=== PATIENT | male | born 1965 | race Caucasian/White ===

== ENCOUNTER 2016-07-03 15:37 | Observation (INO) | payer MEDICAID ==
--- NOTE | 2016-07-03 16:03 | ER Document Report ---
[id number] Ambulatory Information source: Patient TRAVEL OUTSIDE OF THE [place] IN LAST 30 DAYS: No - HPI Patient complains to provider of: Cough, Short of breath Onset: Yesterday Context: Hx CHF At home treatment: Oxygen Associated symptoms: Other - see above <SERGIO SKY - Last Filed: 07/03/16 23:18> <KEYANA TABOR - Last Filed: 07/16/16 13:10> - General Chief Complaint: Cough Stated Complaint: COUGH Notes: 51-year-old male with history of congestive heart failure and pneumonia presents to the ED via EMS complaining of a cough and cold that started yesterday. Patient states that the last time he was admitted for respiratory- related issues was in January 2016. Patient is on 3 L of oxygen at home and states that he mainly uses it at night however does use it throughout the day when needed. Patient is additionally complaining of shortness of breath and back pain. Patient states that he was placed on a ventilator in the past which led to his throat collapsing and is the reason why he has a trach in place. Patient also has a history of sleep apnea and blood clots and is currently on Xarelto. EMS reports that the patient had a fever of 103F and gave the patient Tylenol prior to arrival. Patient was 83% on room air while walking to the ambulance. Patient was placed on a nonrebreather and his O2 saturation went to 99%. (SERGIO SKY) - Related Data Allergies/Adverse Reactions: heparin Allergy (Severe, Verified 07/03/16 22:40) Home Medications: Current Home Medications Bumetanide [Bumex 1 mg Tablet] 1 mg PO DAILY 07/04/16 [History] Metformin HCl [Glucophage] 1,000 mg PO BID 07/04/16 [History] Metoprolol Tartrate [Lopressor 25 mg Tablet] 25 mg PO Q12 07/04/16 [History] Rivaroxaban [Xarelto] 20 mg PO DAILY 07/04/16 [History] Past Medical History - General Information source: Patient - Social History Smoking Status: Unknown if Ever Smoked Family History: Reviewed & Not Pertinent - Past Medical History Cardiac Medical History: Reports: Hx Congestive Heart Failure, Hx Hypertension Pulmonary Medical History: Reports: Hx Asthma, Hx Intubation, Hx Respiratory Failure, Hx Sleep Apnea Endocrine Medical History: Reports: Hx Diabetes Mellitus Type 2 - Immunizations Hx Diphtheria, Pertussis, Tetanus Vaccination: Yes <SERGIO SKY - Last Filed: 07/03/16 23:18> Review of Systems - Review of Systems Constitutional: See HPI, Fever - 103F EENT: No symptoms reported Cardiovascular: No symptoms reported Respiratory: See HPI, Cough, Short of breath Gastrointestinal: No symptoms reported Genitourinary: No symptoms reported Male Genitourinary: No symptoms reported Musculoskeletal: See HPI, Back pain Skin: No symptoms reported Hematologic/Lymphatic: No symptoms reported Neurological/Psychological: No symptoms reported -: Yes All other systems reviewed and negative <SERGIO SKY - Last Filed: 07/03/16 23:18> Physical Exam - Vital signs Interpretation: Normal - General General appearance: Alert In distress: None - HEENT Head: Normocephalic, Atraumatic Eyes: Normal Extraocular movements intact: Yes Pupils: PERRL Neck: Normal - Tracheotomy is midline. - Respiratory Respiratory status: No respiratory distress Breath sounds: Rhonchi - bilaterally. No: Normal - Cardiovascular Rhythm: Regular Heart sounds: Normal auscultation - Abdominal Inspection: Normal Distension: No distension Bowel sounds: Normal Tenderness: Nontender - Back Back: Normal - Extremities General upper extremity: Normal inspection, Normal ROM. No: Edema General lower extremity: Normal inspection, Normal ROM. No: Edema - Neurological Neuro grossly intact: Yes Cognition: Normal Orientation: AAOx4 [place] Coma Scale Eye Opening: Spontaneous [place] Coma Scale Verbal: Oriented [place] Coma Scale Motor: Obeys Commands [place] Coma Scale Total: 15 Speech: Normal - Psychological Associated symptoms: Normal affect, Normal mood - Skin Skin Temperature: Warm Skin Moisture: Dry Skin Color: Normal <MARCIO SKYUR - Last Filed: 07/03/16 23:18> <KEYANA TABOR - Last Filed: 07/16/16 13:10> - Vital signs Vitals: Temp Pulse Resp BP Pulse Ox 101.3 F H 102 H 18 131/93 H 90 L 07/03/16 15:45 07/03/16 15:45 07/03/16 15:45 07/03/16 15:45 07/03/16 15:45 Temp Pulse Resp BP Pulse Ox 101.3 F H 102 H 18 131/93 H 90 L 07/03/16 15:45 07/03/16 15:45 07/03/16 15:45 07/03/16 15:45 07/03/16 15:45 (SERGIO SKY) (KEYANA TABOR) Course - Laboratory Result Diagrams: 07/03/16 16:14 07/03/16 16:14 - Consults Dr. Osuna Time consulted: 19:30 <SERGIO SKY - Last Filed: 07/03/16 23:18> - Laboratory Result Diagrams: 07/04/16 06:35 07/03/16 16:14 <KEYANA TABOR - Last Filed: 07/16/16 13:10> - Re-evaluation Re-evalutation: 07/03/16 21:31 07/03/16 22:55 07/03/16 22:56 I personally performed the services described in the documentation, reviewed and edited the documentation which was dictated to my scribe in my presence, and it accurately records my words and actions. Patient presents emergency Department with a chief complaint of difficulty breathing. Patient has a history of morbid obesity CHF sleep apnea and tracheostomy tube that was placed last year. EMS states initial O2 sat of 83% walking to the EMS stretcher from home. On ED arrival patient is febrile 103 slightly tachycardic and normotensive sepsis protocol is ordered on the patient including broad-spectrum antibiotics lactic acid is elevated. Sinus tachycardia on EKG. Cardiac enzymes negative chest x-ray negative for acute pneumonia no urinary tract infection. Patient given IV fluids positive for influenza. Patient will be placed for observation Tamiflu was given breathing treatments and oxygen. 07/04/16 00:00 Patient with improved respiratory status on oxygen no acute respiratory distress negative bilateral pneumonia patient is positive for the flu given his significant respiratory history was placed on Tamiflu and when I spoke with the hospitalist physician he wants him admitted to the ICU. (KEYANA TABOR) - Vital Signs Vital signs: Temp Pulse Resp BP Pulse Ox 98.2 F 62 17 131/93 H 98 07/05/16 12:30 07/05/16 14:18 07/05/16 14:18 07/05/16 12:30 07/05/16 12:30 (KEYANA TABOR) - Laboratory Laboratory results interpreted by me: 07/03/16 07/03/16 07/03/16 16:14 16:14 16:14 RDW 14.1 H Lymphocytes % 10.8 L Monocytes % 16.6 H Carbon Dioxide 31 H Glucose 176 H Lactic Acid 2.2 H 07/03/16 20:55 RDW Lymphocytes % Monocytes % Carbon Dioxide Glucose Lactic Acid 2.5 H (KEYANA TABOR) - EKG Interpretation by Me Additional EKG results interpreted by me: 07/03/16 22:57 EKG interpreted by myself as sinus tachycardia at 102 bpm with right bundle branch block no acute ST segment elevation or depression (KEYANA TABOR) - Consults Dr. Osuna Reason for consultation: 07/03/16 19:30 Dr. Osuna was paged with no response. 07/03/16 20:00 Dr. Osuna was paged with no response. 07/03/16 20:30 Dr. Osuna was paged with no response. 07/03/16 21:00 Dr. Osuna was paged with no response. 07/03/16 21:30 Dr. Osuna was paged with no response. (SERGIO SKY) Critical Care Note - Critical Care Note Total time excluding time spent on procedures (mins): 65 <KEYANA TABOR - Last Filed: 07/16/16 13:10> Discharge <SERGIO SKY - Last Filed: 07/03/16 23:18> - Discharge Admitting Provider: Hospitalist Unit Admitted: ICU <KEYANA TABOR - Last Filed: 07/16/16 13:10> - Discharge Clinical Impression: acute influenza Disposition: ADMITTED INPATIENT Scribe Documentation - Scribe Written by Scribe:: Sage Baum, 07/03/2016 1803 acting as scribe for :: Dean <SERGIO SKY - Last Filed: 07/03/16 23:18>
[2016-07-03] MEDS ORDERED: VANCOMYCIN HCL INJ 1000 MG VIAL IV ONE (16:09)
[2016-07-03] MEDS ORDERED: PIPERACILLIN/TAZOBACTAM 3.375 GM VIAL IV ONE (16:09)
[2016-07-03] MEDS ORDERED: NORMAL SALINE 1000 ML 1,000 ML IV ONE (16:10)
[2016-07-03 16:37] LABS: ABSOLUTE LYMPHOCYTES (AUTO) 0.7 10^3/uL (0.5-4.7); ABSOLUTE MONOCYTES (AUTO) 1.2 10^3/uL (0.1-1.4); BASOPHILS % (AUTO) 0.6 % (0-2); EOSINOPHILS % (AUTO) 0.3 % (0-6); HEMATOCRIT 43.2 % (37.9-51.0); HEMOGLOBIN 14.4 g/dL (13.5-17.0); LYMPHOCYTES % (AUTO) 10.8 % (13-45); MEAN CORPUSCULAR HEMOGLOBIN 30.5 pg (27.0-33.4); MEAN CORPUSCULAR HGB CONC 33.4 g/dL (32.0-36.0); MEAN CORPUSCULAR VOLUME 91 fl (80-97); MONOCYTES % (AUTO) 16.6 % (3-13); RED BLOOD COUNT 4.73 10^6/uL (4.35-5.55); RED CELL DISTRIBUTION WIDTH 14.1 % (11.5-14.0); SEGMENTED NEUTROPHILS % (AUTO) 71.7 % (42-78); WHITE BLOOD COUNT 6.9 10^3/uL (4.0-10.5)
[2016-07-03 16:51] LABS: PROTHROMBIN TIME 15.2 SEC (11.4-15.4)
[2016-07-03 16:52] LABS: ALANINE AMINOTRANSFERASE 46 U/L (21-72); ALBUMIN 3.9 g/dL (3.5-5.0); ALKALINE PHOSPHATASE 60 U/L (38-126); ANION GAP 14 (5-19); ASPARTATE AMINO TRANSFERASE 28 U/L (17-59); BILIRUBIN,TOTAL 0.7 mg/dL (0.2-1.3); BLOOD UREA NITROGEN 14 mg/dL (7-20); CALCIUM 8.8 mg/dL (8.4-10.2); CARBON DIOXIDE 31 mmol/L (22-30); CHLORIDE 98 mmol/L (98-107); CREATININE RESULT 0.87 mg/dL (0.52-1.25); GLUCOSE 176 mg/dL (75-110); POTASSIUM 3.7 mmol/L (3.6-5.0)
[2016-07-03 17:41] LABS: APPEARANCE,URINE CLEAR; BILIRUBIN,URINE NEGATIVE (NEGATIVE); GLUCOSE, URINE NEGATIVE (NEGATIVE); KETONES,URINE NEGATIVE (NEGATIVE); LEUKOCYTE ESTERASE,URINE NEGATIVE (NEGATIVE); NITRITE,URINE NEGATIVE (NEGATIVE); PROTEIN,URINE NEGATIVE (NEGATIVE); URINE SPECIFIC GRAVITY 1.009; UROBILINOGEN,URINE NEGATIVE mg/dL (<2.0)
[2016-07-03 18:53] LABS: VENOUS BLOOD BASE EXCESS 2.5 mmol/L; VENOUS BLOOD PCO2 52.1 mmHg (35-63); VENOUS BLOOD PH 7.36 (7.30-7.42)
--- NOTE | 2016-07-03 18:55 | EKG REPORT ---
SEVERITY:- ABNORMAL ECG - SINUS TACHYCARDIA RBBB AND LAFB OLD INFERIOR NJ OLD ANTERIOR NJ : Confirmed by: Sammy Man MD 03-Jul-2016 18:54:49
[2016-07-03] MEDS ORDERED: OSELTAMIVIR PHOSPHATE 75 MG CAPSULE PO ONE (19:39)
[2016-07-04] MEDS ORDERED: GUAIFENESIN SYRP 200 MG/10 ML UDC PO PRN (01:07)
[2016-07-04] MEDS ORDERED: ACETAMINOPHEN 325 MG TABLET PO PRN (01:07)
[2016-07-04] MEDS ORDERED: IPRATROPIUM/ALBUTEROL 0.5-2.5 MG/3 ML AMPUL NEB PRN (01:07)
[2016-07-04] MEDS ORDERED: GLUCAGON,HUMAN RECOMB 1 MG INJ IM PRN (01:09)
[2016-07-04] MEDS ORDERED: DEXTROSE 40% GEL 15 GM TUBE PO PRN ×2 (01:09)
[2016-07-04] MEDS ORDERED: DEXTROSE 50%-WATER 25 GM/50 ML DISP.SYRIN IV PRN ×2 (01:09)
[2016-07-04 01:37] LABS: VENOUS BLOOD BASE EXCESS 3.7 mmol/L; VENOUS BLOOD HCO3 29.4 mmol/L (20-32); VENOUS BLOOD PCO2 48.4 mmHg (35-63); VENOUS BLOOD PH 7.4 (7.30-7.42)
--- NOTE | 2016-07-04 02:00 | PDOC H&P ---
History of Present Illness Admission Date/PCP: 07/04/16 00:[address] Isidro Quarles Patient complains of: Cough, SOB History of Present Illness: VICKY ELIZABETH is a 51 year old male with underlying morbid obesity, congestive heart failure, uncertain if systolic and/or diastolic, hyperlipidemia , type II diabetes mellitus, status post permanent tracheostomy in 2014 after 2 month stay at [facility] for congestive heart failure and pulmonary emboli, on chronic Xarelto for same, but with no known underlying chronic pulmonary disease other than obstructive sleep apnea, for which he uses nasal CPAP, 3 liters oxygen, setting of 4, who presents to the emergency room for evaluation of above complaint. Patient has been discussed with emergency room physician who evaluated the patient. He describes a 24-48 hour history Of symptoms initially felt to be related to an upper respiratory tract infection, "cough and cold. " Fever to 103. Slightly productive cough. No nausea vomiting, diarrhea or dysuria. No chest or abdominal pain. Thinks he is up-to-date with his flu vaccination. Uncertain about a Pneumovax. There is no record on my vice president of instruction in-hospital phone that I was ever contacted by phone by Dr. Moran, initial evaluating ER MD, about this patient. I was notified of patient's need for admission as I was discussing another patient with Dr. Moran. Laboratory results are listed in [facility] and are reviewed. X-ray summary results are listed below, with full report(s) reviewed. . EKG reviewed. And compared to tracing from 02/09/2015 Social history/personal habits: . One child. Lives alone. Occasional beer. No tobacco or illicit drug use. Allergies/adverse reactions are listed in [facility] and are reviewed. Home medications are reviewed by bottle review and discussion with patient and are to be reconciled by nursing staff in [facility]. Home medications initially autopopulated into [facility] may not accurately reflect patient's true medications, dosages, and/or frequencies. Compliant with medications. No recent medication changes. Unfortunately, patient uncertain of medication and dosage for his hyperlipidemia. Order has been entered for staff to contact family, outpatient physician, and/or pharmacy to more accurately determine medication and dosage and to contact physician when that has been accomplished. REVIEW OF SYSTEMS: Constitutional: See history and present illness. Eyes: Wears glasses. ENT: No swallowing problems or complaints. No hearing problems or complaints. Pulmonary: See history and present illness. Cardiovascular: No current complaints, including chest pain. Gastrointestinal: No current complaints, including nausea or vomiting. Skin: No current complaints, including rashes. Hematologic: Easy bruising. Neurologic: No current complaints, including numbness or tingling. Musculoskeletal: Joint pain from arthritis. Psychiatric: No current complaints, including anxiety or depression. Endocrine: No current complaints, including polyuria. Genitourinary: No current complaints, including dysuria. PHYSICAL EXAMINATION: 5 feet 8 inches tall. 168.3 kg. BMI 56.4 kg/m. Blood pressure 116/60. Pulse 87 and regular. Respirations are 22 and unlabored. 98% saturation on nasal CPAP, his own device, with 3 L of underlying oxygen. Morbidly obese otherwise well-developed though somewhat chronically ill- appearing male in no obvious distress other than appearing to feel a bit under the weather, so to speak. Pleasant awake alert and cooperative. Skin is warm and dry. No grossly obvious evidence of rash in areas of skin examined. No subcutaneous nodules palpated. ENT: Hearing grossly normal to normal conversation. Tongue midline on protrusion pink and slightly moist. Eyes: No scleral icterus. Pupils equal and reactive to light at 4 mm. [place] conjunctivae. Neck is supple and nontender to gentle active range of motion and palpation. Midline trachea. No palpable thyroid nodule mass enlargement or tenderness. Lymphatic: No palpable cervical or clavicular nodes. Neck and lymphatic exams limited by patient body habitus. Exam also limited by indwelling talking trach device. Psychiatric: Reasonable insight into acute and chronic medical issues. Oriented to time location and why here. Lungs: Auscultation reveals clear and equal breath sounds bilaterally. No use of accessory respiratory muscles. Cardiovascular: Heart regular rate and rhythm, without gallop murmur or rub. No carotid or abdominal aortic bruits. No ankle or pedal edema. Faintly palpable dorsalis pedis pulses. Abdomen: soft, prominently obese, nontender with positive bowel sounds. Unable to adequately evaluate abdomen for masses or organomegaly due to body habitus. Extremities: Feet are warm and dry. No calf tenderness to compression. No grossly obvious visual evidence of calf swelling. Gentle manipulation of lower extremities fails to reveal any obvious evidence of injury or instability to knees hips or ankles. Neurologic: Moves all 4 extremities grossly normally. Patellar reflexes absent. Absent Babinski. Light touch is intact at feet. Dorsiflexion and plantarflexion of feet 5 / 5 and symmetric. Moves from lateral decubitus to supine position, and back, without undue difficulty. Past Medical History Cardiac Medical History: Reports: Congestive Heart Failure - No evidence of either on 09/15/2014 study at our facility., Hyperlipidema, Hypertension, Pulmonary Embolism - 2014 Denies: Myocardial Infarction Pulmonary Medical History: Reports: Intubation, Respiratory Failure, Sleep Apnea , Other - Permanent trach Denies: Asthma, Chronic Obstructive Pulmonary Disease (COPD) EENT Medical History: Reports: Eyes - Wears glasses. Denies: Ears, Throat Neurological Medical History: Denies: Hemorrhagic CVA, Ischemic CVA, Seizures Endocrine Medical History: Reports: Diabetes Mellitus Type 2 Denies: Hyperthyroidism, Hypothyroidism Renal/ Medical History: Reports: None GI Medical History: Denies: Cirrhosis, Gastroesophageal Reflux Disease, Hepatitis, Peptic Ulcer Disease Musculoskeltal Medical History: Reports: Arthritis Skin Medical History: Reports: None Psychiatric Medical History: Denies: Alcohol Dependency, Depression, General Anxiety Disorder, Substance Abuse, Tobacco Dependency Hematology: Reports: Other - Easy bruising Infectious Medical History: Denies: Hepatitis B, Hepatitis C Past Surgical History Past Surgical History: Reports: Other - Tracheostomy, 2014 Social History Information Source: Patient, Emergency Med Personnel, [facility] Records Lives with: Alone Smoking Status: Former Smoker Frequency of Alcohol Use: Occasional Drugs: None - Advance Directive Resuscitation Status: Full Code Surrogate healthcare decision maker:: Sister Family History Family History: Reviewed & Not Pertinent Parental Family History Reviewed: Yes Children Family History Reviewed: Yes Sibling(s) Family History Reviewed.: Yes Medication/Allergy Home Medications: Bumetanide [Bumex 1 mg Tablet] 1 mg PO DAILY 07/04/16 Metoprolol Tartrate [Lopressor 25 mg Tablet] 25 mg PO Q12 07/04/16 Rivaroxaban [Xarelto] 20 mg PO DAILY 07/04/16 Allergies/Adverse Reactions: heparin Allergy (Severe, Verified 07/03/16 22:40) Physical Exam Vital Signs: Temp Pulse Resp BP Pulse Ox 100.0 F 102 H 23 H 116/62 91 L 07/03/16 20:00 07/03/16 15:45 07/03/16 23:01 07/04/16 00:01 07/04/16 00:01 Results Impressions: Chest X-Ray 07/03/16 15:40 IMPRESSION: Nothing acute. Assessment & Plan - Diagnosis (1) Influenza A Is this a current diagnosis for this admission?: YesPlan: Tamiflu has been started. Will continue same. No obvious respiratory distress at present. I have strongly encouraged patient not to get out of bed without notifying staff , to avoid a fall with injury. Knee high SCDs for DVT prophylaxis, along with continuation of Xarelto Impression and plans were discussed with patient, who concurs. Time spent in evaluation and management of patient: 65 minutes. (2) CHF (congestive heart failure) Qualifiers: Congestive heart failure type: unspecified congestive heart failure type Congestive heart failure chronicity: chronic Qualified Code(s): I50.9 - Heart failure, unspecified Is this a current diagnosis for this admission?: YesPlan: Hemodynamically stable. No clinical evidence of heart failure exacerbation. Resume home medications as appropriate once these have been reviewed. (3) Diabetes mellitus type 2 in obese Is this a current diagnosis for this admission?: YesPlan: Accu-Cheks with appropriate sliding scale coverage. Will hold metformin at present time in case intravenous contrast study needed. (4) HTN (hypertension) Qualifiers: Hypertension type: essential hypertension Qualified Code(s): I10 - Essential (primary) hypertension Is this a current diagnosis for this admission?: YesPlan: Resume home medications as appropriate once these have been reviewed. (5) Hyperlipidemia Qualifiers: Hyperlipidemia type: unspecified Qualified Code(s): E78.5 - Hyperlipidemia, unspecified Is this a current diagnosis for this admission?: YesPlan: Resume home medications as appropriate once these have been determined and reviewed. (6) RANDY (obstructive sleep apnea) Is this a current diagnosis for this admission?: YesPlan: Continue home device nasal CPAP. (7) Tracheostomy in place Is this a current diagnosis for this admission?: Yes (8) History of pulmonary embolism Is this a current diagnosis for this admission?: Yes (9) Anticoagulated Is this a current diagnosis for this admission?: YesPlan: Resume home medications as appropriate once these have been reviewed. - Inpatient Certification Based on my medical assessment, after consideration of the patient's comorbidities, presenting symptoms, or acuity I expect that the services needed warrant INPATIENT care.: Yes I certify that my determination is in accordance with my understanding of Medicare's requirements for reasonable and necessary INPATIENT services [42 CFR 412.3e].: Yes Medical Necessity: Significant Comorbidiites Make Outpatient Treatment Too Risky , Need Close Monitoring Due to Risk of Patient Decompensation, Need For Continuous Telemetry Monitoring, Risk of Complication if Not Cared For in Hospital Post Hospital Care: D/C or Transfer Summary
[2016-07-04 06:43] LABS: ABSOLUTE LYMPHOCYTES (AUTO) 0.9 10^3/uL (0.5-4.7); ABSOLUTE MONOCYTES (AUTO) 1.1 10^3/uL (0.1-1.4); ABSOLUTE NEUT (AUTO) 3.7 10^3/uL (1.7-8.2); BASOPHILS % (AUTO) 0.5 % (0-2); EOSINOPHILS % (AUTO) 0.6 % (0-6); HEMATOCRIT 40.4 % (37.9-51.0); HEMOGLOBIN 13.7 g/dL (13.5-17.0); HGB HCT DIFFERENCE 0.7; LYMPHOCYTES % (AUTO) 15.2 % (13-45); MEAN CORPUSCULAR HEMOGLOBIN 30.6 pg (27.0-33.4); MEAN CORPUSCULAR HGB CONC 33.9 g/dL (32.0-36.0); MEAN CORPUSCULAR VOLUME 91 fl (80-97); MONOCYTES % (AUTO) 18.5 % (3-13); RED BLOOD COUNT 4.46 10^6/uL (4.35-5.55); RED CELL DISTRIBUTION WIDTH 14.3 % (11.5-14.0); SEGMENTED NEUTROPHILS % (AUTO) 65.2 % (42-78); WHITE BLOOD COUNT 5.7 10^3/uL (4.0-10.5)
--- NOTE | 2016-07-04 08:07 | EKG REPORT ---
SEVERITY:- ABNORMAL ECG - SINUS RHYTHM RIGHT BUNDLE BRANCH BLOCK : Confirmed by: Sammy Man MD 04-Jul-2016 08:06:59
[2016-07-04] MEDS: OSELTAMIVIR PHOSPHATE 75 MG CAPSULE PO SCH ×2 (10:00→18:00)
--- NOTE | 2016-07-04 13:37 | PDOC PROGRESS REPORT ---
Subjective Progress Note for:: 07/04/16 Subjective:: Patient is seen on morning rounds. He is lying prone in bed on nasal CPAP. He denies any dyspnea. He does complain of a cough which is mostly nonproductive. He denies any chest pain or dyspnea. He denies any nausea, abdominal pain or diarrhea. He states he is hungry. He was given clear liquid diet for breakfast. He states he has generalized myalgias and arthralgias. He denies any other complaints at the present time. Physical Exam Vital Signs: Temp Pulse Resp BP Pulse Ox 98.8 F 71 16 134/82 H 96 07/04/16 11:08 07/04/16 12:09 07/04/16 12:09 07/04/16 11:08 07/04/16 11:08 Intake & Output 07/03/16 07/04/16 07/05/16 06:59 06:59 06:59 Intake Total 8 100 Output Total 150 Balance -142 100 Weight 168.283 kg General appearance: PRESENT: no acute distress, morbidly obese, well-developed, well-nourished Head exam: PRESENT: atraumatic, normocephalic Eye exam: PRESENT: conjunctiva pink, EOMI, PERRLA. ABSENT: scleral icterus Ear exam: PRESENT: normal external ear exam Mouth exam: PRESENT: moist, tongue midline Neck exam: ABSENT: carotid bruit, JVD, lymphadenopathy, thyromegaly Respiratory exam: PRESENT: rhonchi, symmetrical, unlabored Cardiovascular exam: PRESENT: RRR. ABSENT: diastolic murmur, rubs, systolic murmur Pulses: PRESENT: normal dorsalis pedis pul Vascular exam: PRESENT: normal capillary refill GI/Abdominal exam: PRESENT: normal bowel sounds, soft. ABSENT: distended, guarding, mass, organolmegaly, rebound, tenderness Rectal exam: PRESENT: deferred Extremities exam: PRESENT: full ROM. ABSENT: calf tenderness, clubbing, pedal edema Neurological exam: PRESENT: alert, awake, oriented to person, oriented to place , oriented to time, oriented to situation, CN II-XII grossly intact. ABSENT: motor sensory deficit Psychiatric exam: PRESENT: appropriate affect, normal mood. ABSENT: homicidal ideation, suicidal ideation Skin exam: PRESENT: dry, intact, warm. ABSENT: cyanosis, rash Results Laboratory Results: 07/04/16 06:35 07/04/16 07/04/16 01:26 06:35 WBC 5.7 RBC 4.46 Hgb 13.7 Hct 40.4 MCV 91 MCH 30.6 MCHC 33.9 RDW 14.3 H Plt Count 151 Seg Neutrophils % 65.2 Lymphocytes % 15.2 Monocytes % 18.5 H Eosinophils % 0.6 Basophils % 0.5 Absolute Neutrophils 3.7 Absolute Lymphocytes 0.9 Absolute Monocytes 1.1 Absolute Eosinophils 0.0 Absolute Basophils 0.0 VBG pH 7.40 VBG pCO2 48.4 VBG HCO3 29.4 VBG Base Excess 3.7 Impressions: Chest X-Ray 07/03/16 15:40 IMPRESSION: Nothing acute. Assessment & Plan - Diagnosis (1) Influenza A Is this a current diagnosis for this admission?: YesPlan: On Tamiflu. Respiratory precautions in place for staff. He states he feels too weak to go home (2) RANDY (obstructive sleep apnea) Is this a current diagnosis for this admission?: YesPlan: Patient has a permanent trach which he caps at night and uses nasal CPAP at home. He was apparently on bed bug exterminator ventilator last year at [facility] with respiratory failure, also associated with PE (3) History of pulmonary embolism Is this a current diagnosis for this admission?: YesPlan: Chronically anticoagulated (4) CHF (congestive heart failure) Qualifiers: Congestive heart failure type: unspecified congestive heart failure type Congestive heart failure chronicity: chronic Qualified Code(s): I50.9 - Heart failure, unspecified Is this a current diagnosis for this admission?: YesPlan: Patient's last echo here was in 2014. No documentation of diastolic or systolic heart failure. (5) Diabetes mellitus type 2 in obese Is this a current diagnosis for this admission?: YesPlan: Continue home medications and sliding scale coverage (6) HTN (hypertension) Qualifiers: Hypertension type: essential hypertension Qualified Code(s): I10 - Essential (primary) hypertension Is this a current diagnosis for this admission?: YesPlan: Continue home medications (7) Hyperlipidemia Qualifiers: Hyperlipidemia type: unspecified Qualified Code(s): E78.5 - Hyperlipidemia, unspecified Is this a current diagnosis for this admission?: YesPlan: Continue statin (8) Morbid obesity Is this a current diagnosis for this admission?: YesPlan: Patient counseled - Time Time Spent with patient: 25-34 minutes Critical Time spent with patient: 15-24 minutes Medications reviewed and adjusted accordingly: Yes
[2016-07-04] MEDS: GUAIFENESIN 600 MG TABLET.SA PO SCH (21:51)
[2016-07-05] MEDS ORDERED: INSULIN LISPRO 100 UNIT/ML 3 ML VIAL SUBCUT PRN (00:11)
[2016-07-05] MEDS: GUAIFENESIN 600 MG TABLET.SA PO SCH (10:23)
[2016-07-05] MEDS: OSELTAMIVIR PHOSPHATE 75 MG CAPSULE PO SCH (10:23)
[2016-07-05 12:34] VITALS: BP 133/75
--- NOTE | 2016-07-05 14:14 | PDOC DISCHARGE SUMMARY ---
General - Admit/Disc Date/PCP Admission Date/Primary Care Provider: 07/04/16 01:07 YENY WARD MD Surfacer Operator: Dr. Felix Discharge Date: 07/05/16 - Discharge Diagnosis (1) Influenza A Is this a current diagnosis for this admission?: Yes (2) Acute and chronic respiratory failure Is this a current diagnosis for this admission?: Yes (3) Diabetes mellitus type 2 in obese Is this a current diagnosis for this admission?: Yes (4) HTN (hypertension) Is this a current diagnosis for this admission?: Yes (5) Hyperlipidemia Is this a current diagnosis for this admission?: Yes (6) Morbid obesity Is this a current diagnosis for this admission?: Yes (7) RANDY (obstructive sleep apnea) Is this a current diagnosis for this admission?: Yes (8) Tracheostomy in place Is this a current diagnosis for this admission?: Yes (9) Anticoagulated Is this a current diagnosis for this admission?: Yes (10) History of pulmonary embolism Is this a current diagnosis for this admission?: Yes - Additional Information Resuscitation Status: Full Code Discharge Diet: As Tolerated Discharge Activity: Activity As Tolerated Home Medications: Bumetanide [Bumex 1 mg Tablet] 1 mg PO DAILY 07/04/16 Metformin HCl [Glucophage] 1,000 mg PO BID 07/04/16 Metoprolol Tartrate [Lopressor 25 mg Tablet] 25 mg PO Q12 07/04/16 Rivaroxaban [Xarelto] 20 mg PO DAILY 07/04/16 Guaifenesin [Mucinex Sr 600 mg Tablet.sa] 1,200 mg PO Q12 #8 tablet.sa 07/05/16 Oseltamivir Phosphate [Tamiflu 75 mg Capsule] 75 mg PO BID #6 capsule 07/05/16 History of Present Illness Patient complains of: Short of breath History of Present Illness: KYA LANDIS is a 62 year old male with underlying 24/72 L oxygen per nasal cannula home O2 dependent COPD, obstructive sleep apnea, with CPAP currently in the process of being set up, atrial fibrillation, on Pradaxa for same, asthma, type II diabetes mellitus, arthritis, bipolar disorder, who presents to the emergency room for evaluation of above complaint. Patient himself is somewhat of a difficult historian at times. Describes a 2 day history of slowly progressive difficulty breathing, in particular with much of any exertion. Cough a bit more productive than usual. However, denies nausea vomiting, fever chills, chest or abdominal pain, diarrhea or dysuria. Neither antibiotic usage nor hospitalization in the past 3 months. Persistently tachycardic into the 130 plus range in the emergency room. Hospital Course Hospital Course: The patient was admitted to [facility]. The patient was placed on scheduled nebs as well as PRN nebs, Tamiflu and supplemental oxygen. Tachycardia resolved. The patient is back to baseline and able to complete sentences. During his first episode the patient refused discharge and therefore he was Additional day for observation. The patient has no evidence of hypoxia and is actually on room air. Patient has agreed to discharge. Physical Exam Vital Signs: Temp Pulse Resp BP Pulse Ox 98.2 F 60 16 131/93 H 98 07/05/16 12:30 07/05/16 12:30 07/05/16 12:30 07/05/16 12:30 07/05/16 12:30 Intake & Output 07/03/16 07/04/16 07/05/16 23:59 23:59 23:59 Intake Total 355 645 Output Total 150 237 Balance 205 408 Weight 168.283 kg 168.7 kg General appearance: PRESENT: no acute distress, cooperative, morbidly obese, well-developed Head exam: PRESENT: atraumatic, normocephalic Eye exam: PRESENT: conjunctiva pink, EOMI, PERRLA. ABSENT: scleral icterus Ear exam: PRESENT: normal external ear exam Mouth exam: PRESENT: moist, tongue midline Neck exam: PRESENT: tracheostomy. ABSENT: carotid bruit, JVD, lymphadenopathy, thyromegaly Respiratory exam: PRESENT: clear to auscultation alie. ABSENT: rales, rhonchi, wheezes Cardiovascular exam: PRESENT: RRR. ABSENT: diastolic murmur, rubs, systolic murmur Pulses: PRESENT: normal dorsalis pedis pul Vascular exam: PRESENT: normal capillary refill GI/Abdominal exam: PRESENT: normal bowel sounds, soft. ABSENT: distended, guarding, mass, organolmegaly, rebound, tenderness Rectal exam: PRESENT: deferred Extremities exam: PRESENT: full ROM. ABSENT: calf tenderness, clubbing, pedal edema Neurological exam: PRESENT: alert, awake, oriented to person, oriented to place , oriented to time, oriented to situation, CN II-XII grossly intact. ABSENT: motor sensory deficit Psychiatric exam: PRESENT: appropriate affect, normal mood. ABSENT: homicidal ideation, suicidal ideation Skin exam: PRESENT: dry, intact, warm. ABSENT: cyanosis, rash Results Laboratory Results: Labs- Last Values WBC 5.7 10^3/uL (4.0-10.5) 07/04/16 06:35 RBC 4.46 10^6/uL (4.35-5.55) 07/04/16 06:35 Hgb 13.7 g/dL (13.5-17.0) 07/04/16 06:35 Hct 40.4 % (37.9-51.0) 07/04/16 06:35 MCV 91 fl (80-97) 07/04/16 06:35 MCH 30.6 pg (27.0-33.4) 07/04/16 06:35 MCHC 33.9 g/dL (32.0-36.0) 07/04/16 06:35 RDW 14.3 % (11.5-14.0) H 07/04/16 06:35 Plt Count 151 10^3/uL (150-450) 07/04/16 06:35 Seg Neutrophils % 65.2 % (42-78) 07/04/16 06:35 Lymphocytes % 15.2 % (13-45) 07/04/16 06:35 Monocytes % 18.5 % (3-13) H 07/04/16 06:35 Eosinophils % 0.6 % (0-6) 07/04/16 06:35 Basophils % 0.5 % (0-2) 07/04/16 06:35 Absolute Neutrophils 3.7 10^3/uL (1.7-8.2) 07/04/16 06:35 Absolute Lymphocytes 0.9 10^3/uL (0.5-4.7) 07/04/16 06:35 Absolute Monocytes 1.1 10^3/uL (0.1-1.4) 07/04/16 06:35 Absolute Eosinophils 0.0 10^3/uL (0.0-0.6) 07/04/16 06:35 Absolute Basophils 0.0 10^3/uL (0.0-0.2) 07/04/16 06:35 PT 15.2 SEC (11.4-15.4) 07/03/16 16:14 INR 1.16 07/03/16 16:14 VBG pH 7.40 (7.30-7.42) 07/04/16 01:26 VBG pCO2 48.4 mmHg (35-63) 07/04/16 01:26 VBG HCO3 29.4 mmol/L (20-32) 07/04/16 01:26 VBG Base Excess 3.7 mmol/L 07/04/16 01:26 Sodium 143.0 mmol/L (137-145) 07/03/16 16:14 Potassium 3.7 mmol/L (3.6-5.0) 07/03/16 16:14 Chloride 98 mmol/L (98-107) 07/03/16 16:14 Carbon Dioxide 31 mmol/L (22-30) H 07/03/16 16:14 Anion Gap 14 (5-19) 07/03/16 16:14 BUN 14 mg/dL (7-20) 07/03/16 16:14 Creatinine 0.87 mg/dL (0.52-1.25) 07/03/16 16:14 Est GFR ( Amer) > 60 (>60) 07/03/16 16:14 Est GFR (Non-Af Amer) > 60 (>60) 07/03/16 16:14 Glucose 176 mg/dL (75-110) H 07/03/16 16:14 POC Glucose 147 mg/dL (70-110) H 07/05/16 11:58 Lactic Acid 2.5 mmol/L (0.7-2.1) H 07/03/16 20:55 Calcium 8.8 mg/dL (8.4-10.2) 07/03/16 16:14 Total Bilirubin 0.7 mg/dL (0.2-1.3) 07/03/16 16:14 Direct Bilirubin 0.0 mg/dL (0.0-0.3) 07/03/16 16:14 AST 28 U/L (17-59) 07/03/16 16:14 ALT 46 U/L (21-72) 07/03/16 16:14 Alkaline Phosphatase 60 U/L (38-126) 07/03/16 16:14 Total Protein 7.0 g/dL (6.3-8.2) 07/03/16 16:14 Albumin 3.9 g/dL (3.5-5.0) 07/03/16 16:14 Urine Color STRAW 07/03/16 17:10 Urine Appearance CLEAR 07/03/16 17:10 Urine pH 6.0 (5.0-9.0) 07/03/16 17:10 Ur Specific [place] 1.009 07/03/16 17:10 Urine Protein NEGATIVE mg/dL (NEGATIVE) 07/03/16 17:10 Urine Glucose (UA) NEGATIVE mg/dL (NEGATIVE) 07/03/16 17:10 Urine Ketones NEGATIVE mg/dL (NEGATIVE) 07/03/16 17:10 Urine Blood NEGATIVE (NEGATIVE) 07/03/16 17:10 Urine Nitrite NEGATIVE (NEGATIVE) 07/03/16 17:10 Urine Bilirubin NEGATIVE (NEGATIVE) 07/03/16 17:10 Urine Urobilinogen NEGATIVE mg/dL (<2.0) 07/03/16 17:10 Ur Leukocyte Esterase NEGATIVE (NEGATIVE) 07/03/16 17:10 Urine WBC (Auto) 1 /HPF 07/03/16 17:10 Urine RBC (Auto) 0 /HPF 07/03/16 17:10 U Hyaline Cast (Auto) 6 /LPF 07/03/16 17:10 Squamous Epi Cells Auto <1 /HPF 07/03/16 17:10 Urine Ascorbic Acid NEGATIVE (NEGATIVE) 07/03/16 17:10 Influenza A (Rapid) POSITIVE (NEGATIVE) 07/03/16 17:10 Influenza B (Rapid) NEGATIVE (NEGATIVE) 07/03/16 17:10 Impressions: Chest X-Ray 07/03/16 15:40 IMPRESSION: Nothing acute. Qualifiers PATEINT BEING DISCHARGED WITH ANY OF THE FOLLOWING DIAGNOSIS?: No Plan Time Spent: Less than 30 Minutes
[2016-07-05] MEDS ORDERED: METFORMIN HCL 500 MG TABLET PO SCH (17:00)
[2016-07-05] MEDS ORDERED: RIVAROXABAN 10 MG TABLET PO SCH (17:00)
[2016-07-05] MEDS ORDERED: METOPROLOL TARTRATE 25 MG TABLET PO SCH (22:00)
[2016-07-06] MEDS ORDERED: BUMETANIDE 1 MG TABLET PO SCH (10:00)
== END 2016-07-05 16:00 | disposition home or self-care (01) ==
LOC: ER 15:37 → UNDOADMIN 07-04 00:10 → EH 07-04 00:10 → INTOOBSV 07-04 01:07 → 3W 07-04 03:36
PROVIDERS: ADMIT Family Medicine; ATTEND Family Medicine
PROC: 5A1935Z Respiratory Ventilation, Less than 24 Consecutive Hours (ICD-10-PCS; principal; 2016-07-04)
DX: J09.X2 Influenza due to identified novel influenza A virus with other respiratory manifestations (principal); J96.20 Acute and chronic respiratory failure, unspecified whether with hypoxia or hypercapnia; I50.9 Heart failure, unspecified; I48.91 Unspecified atrial fibrillation; E11.9 Type 2 diabetes mellitus without complications; E66.01 Morbid (severe) obesity due to excess calories; Z68.43 Body mass index [BMI] 50.0-59.9, adult; I10 Essential (primary) hypertension; E78.5 Hyperlipidemia, unspecified; G47.33 Obstructive sleep apnea (adult) (pediatric); M19.90 Unspecified osteoarthritis, unspecified site; Z79.899 Other long term (current) drug therapy; Z79.02 Long term (current) use of antithrombotics/antiplatelets; Z86.711 Personal history of pulmonary embolism; Z88.8 Allergy status to other drugs, medicaments and biological substances; Z93.0 Tracheostomy status; Z99.81 Dependence on supplemental oxygen; Z87.891 Personal history of nicotine dependence
CPT/HCPCS: 93005 ×2; 99291; 36415 ×2; 87040; 87086; 82962 ×2; 85025 ×2; 85610; 80053; 81001; 82803 ×2; 83605; 87804; 71020; 94799; 93010 ×2; 94660; G0378 ×2; J3490 ×8

== ENCOUNTER 2016-12-31 00:07 | Emergency (ER) | payer BC, MEDICAID ==
[2016-12-31 00:36] VITALS: BP 135/86
--- NOTE | 2016-12-31 00:43 | ER Document Report ---
ED General - General Chief Complaint: Sore Throat Stated Complaint: POSSIBLE TRACH MALFUNCTION/DIFFICULTY BREATHING Time Seen by Provider: 12/31/16 00:20 Notes: Patient is a 51-year-old male who presents with complaint of his trach becoming dislodged. He has a size 6 XL trach. He brought with him He said he had just a small amount of blood when it came out. No further bleeding since then. No other complaints at this time. This tracheostomy was performed 2 years ago. No revision of the tracheostomy since then. He has a tracheostomy due to history of CHF and having to be on prolonged mechanical ventilation. TRAVEL OUTSIDE OF THE [place] IN LAST 30 DAYS: No - Related Data Allergies/Adverse Reactions: heparin Allergy (Severe, Verified 07/03/16 22:40) Past Medical History - Social History Smoking Status: Unknown if Ever Smoked Frequency of alcohol use: None Drug Abuse: None Family History: Reviewed & Not Pertinent - Past Medical History Cardiac Medical History: Reports: Hx Congestive Heart Failure - No evidence of either on 09/15/2014 study at our facility., Hx Hypercholesterolemia, Hx Hypertension, Hx Pulmonary Embolism - 2014 Denies: Hx Heart Attack Pulmonary Medical History: Reports: Hx Intubation, Hx Respiratory Failure, Hx Sleep Apnea Denies: Hx Asthma, Hx COPD Neurological Medical History: Denies: Hx Seizures Endocrine Medical History: Reports: Hx Diabetes Mellitus Type 2. Denies: Hx Hyperthyroidism, Hx Hypothyroidism GI Medical History: Denies: Hx Cirrhosis, Hx Gastroesophageal Reflux Disease, Hx Hepatitis Musculoskeltal Medical History: Reports Hx Arthritis Psychiatric Medical History: Denies: Hx Depression Infectious Medical History: Denies: Hx Hepatitis Past Surgical History: Reports: Other - Tracheostomy, 2015 - Immunizations Hx Diphtheria, Pertussis, Tetanus Vaccination: Yes Review of Systems - Review of Systems Notes: My Normal Review Basic REVIEW OF SYSTEMS: CONSTITUTIONAL : Denies fever, chills, or sweats. Denies recent illness. EENT: Denies eye, ear, throat, or mouth pain or symptoms. Denies nasal or sinus congestion. CARDIOVASCULAR: Denies chest pain. RESPIRATORY: Denies cough, cold, or chest congestion. Denies shortness of breath, difficulty breathing, or wheezing. Tracheostomy tube dislodged GASTROINTESTINAL: . Denies nausea, vomiting. MUSCULOSKELETAL: Denies neck or back pain or joint pain or swelling. SKIN: Denies rash or skin lesions. NEUROLOGICAL: Denies altered mental status or loss of consciousness. ALL OTHER SYSTEMS REVIEWED AND NEGATIVE. Physical Exam - Vital signs Vitals: Temp Pulse Resp BP Pulse Ox 98.0 F 88 18 135/86 H 96 12/31/16 00:35 12/31/16 00:35 12/31/16 00:35 12/31/16 00:35 12/31/16 00:35 - Notes Notes: General Appearance: Well nourished, alert, cooperative, no acute distress, no obvious discomfort. Vitals: reviewed, See vital signs table. Head: no swelling or tenderness to the head Eyes: PERRL, EOMI, Conjuctiva clear Mouth: No decreasd moisture Neck: Tracheostomy stoma is intact. No active bleeding. Lungs: No wheezing, No rales, No rhonci, No accessory muscle use, good air exchange bilaterally. Neuro: speech clear, oriented x 3, normal affect, responds appropriately to questions. Course - Re-evaluation Re-evalutation: 12/31/16 01:38 We only had cuffed tracheostomy tubes in his size. Patient refused a cuffed tube. Patient requested to use his old tube. I did place a new cannula with the tube. I did clean out the tube with peroxide followed by cleaning it was sterile saline and drying it before placing the back and the tracheostomy. I was able to place it with some pressure. Patient did have a little bit of pain during the procedure but otherwise had no other complications other than a small amount of blood-tinged sputum afterwards. Patient is breathing well. He feels well. There is no further active bleeding. Patient will be discharged home. He is encouraged to return to ER immediately if he has recurrent bleeding , pain, redness or swelling around the neck, or if the tube becomes dislodged again. Patient agrees with plan and will be discharged home. Dictation of this chart was performed using voice recognition software; therefore, there may be some unintended grammatical errors. - Vital Signs Vital signs: Temp Pulse Resp BP Pulse Ox 98.0 F 88 18 135/86 H 96 12/31/16 00:35 12/31/16 00:35 12/31/16 00:35 12/31/16 00:35 12/31/16 00:35 Discharge - Discharge Clinical Impression: Trachea displaced Condition: Good Disposition: HOME, SELF-CARE Additional Instructions: Please return to the ER immediately if you have recurrent bleeding, difficulty breathing, or feel unwell. Please follow up with your doctor in 1-2 days for reevaluation.
== END 2016-12-31 02:00 | disposition home or self-care (01) ==
LOC: ER 00:07
DX: J95.00 Unspecified tracheostomy complication (principal); J02.9 Acute pharyngitis, unspecified; R06.02 Shortness of breath; I50.9 Heart failure, unspecified
CPT/HCPCS: 99283

== ENCOUNTER → 2017-03-15 | Outpatient (CLI) | payer BC ==
[2017-03-15 11:11] LABS: PROTHROMBIN TIME 14.9 SEC (11.4-15.4)
[2017-03-15 11:12] LABS: PARTIAL THROMBOPLASTIN TIME 29.6 SEC (23.5-35.8)
== END ==
LOC: OD 10:02
PROVIDERS: ATTEND Obstetrics & Gynecology
DX: Z86.711 Personal history of pulmonary embolism (principal)
CPT/HCPCS: 36415; 85610; 85730

== ENCOUNTER → 2017-05-07 | Outpatient (CLI) | payer BC ==
[2017-05-07 09:58] LABS: HEMATOCRIT 42.1 % (37.9-51.0); HEMOGLOBIN 14.2 g/dL (13.5-17.0); HGB HCT DIFFERENCE 0.5; MEAN CORPUSCULAR HGB CONC 33.8 g/dL (32.0-36.0); MEAN CORPUSCULAR VOLUME 92 fl (80-97); RED BLOOD COUNT 4.59 10^6/uL (4.35-5.55); RED CELL DISTRIBUTION WIDTH 14.4 % (11.5-14.0); WHITE BLOOD COUNT 6.1 10^3/uL (4.0-10.5)
[2017-05-07 10:18] LABS: ALANINE AMINOTRANSFERASE 91 U/L (21-72); ALBUMIN 3.9 g/dL (3.5-5.0); ALKALINE PHOSPHATASE 53 U/L (38-126); ANION GAP 12 (5-19); ASPARTATE AMINO TRANSFERASE 74 U/L (17-59); BILIRUBIN,DIRECT 0.5 mg/dL (0.0-0.4); BLOOD UREA NITROGEN 15 mg/dL (7-20); CARBON DIOXIDE 30 mmol/L (22-30); CHLORIDE 100 mmol/L (98-107); CHOLESTEROL 119.35 mg/dL (0-200); CREATINE KINASE 48 U/L (55-170); CREATININE RESULT 0.74 mg/dL (0.52-1.25); Direct HDL 38 mg/dL (>40); GLUCOSE 219 mg/dL (75-110); POTASSIUM 4.2 mmol/L (3.6-5.0); SODIUM 141.5 mmol/L (137-145); TOTAL PROTEIN 6.7 g/dL (6.3-8.2); TRIGLYCERIDES 162 mg/dL (<150)
[2017-05-07 10:29] LABS: DIRECT LDL 64 mg/dL (<100)
[2017-05-07 10:30] LABS: VLDL CHOLESTEROL 32.4 mg/dL (10-31)
== END ==
LOC: OD 09:07
PROVIDERS: ATTEND Obstetrics & Gynecology
DX: I10 Essential (primary) hypertension (principal); E11.9 Type 2 diabetes mellitus without complications; E78.5 Hyperlipidemia, unspecified; E66.01 Morbid (severe) obesity due to excess calories; Z93.0 Tracheostomy status
CPT/HCPCS: 36415; 80053; 80061; 82550; 85027

== ENCOUNTER 2017-10-01 14:26 | Emergency (ER) | payer MEDICARE ==
--- NOTE | 2017-10-01 15:37 | RADIOLOGY REPORT (SQ) ---
EXAM DESCRIPTION: L SPINE WHOLE COMPLETED DATE/TIME: 10/01/2017 3:17 pm REASON FOR STUDY: pain COMPARISON: None. NUMBER OF VIEWS: Five views including obliques. TECHNIQUE: AP, lateral, oblique, and sacral radiographic images acquired of the lumbar spine. LIMITATIONS: None. FINDINGS: MINERALIZATION: Normal. SEGMENTATION: Normal. No transitional anatomy. ALIGNMENT: There is minimal retrolisthesis of L3 in relation to L4. VERTEBRAE: Maintained height. No fracture or worrisome bone lesion. DISCS: There is almost complete loss of the L4-L5 disc space heights with associated osteophytic caryn ing. There is decrease in the L3-L4 disc space heights with associated osteophytic lipping. POSTERIOR ELEMENTS: Pedicles and facets are intact. No pars defect or posterior arch defects. HARDWARE: None in the spine. PARASPINAL SOFT TISSUES: Normal. PELVIS: Intact as visualized. No fractures or worrisome bone lesions. SI joints intact. OTHER: No other significant finding. IMPRESSION: Degenerative changes as noted above TECHNICAL DOCUMENTATION: JOB ID: [id number] [employer]- All Rights Reserved Reading location - IP/workstation name: [email or web address]
--- NOTE | 2017-10-01 15:55 | ER Document Report ---
ED Neck/Back Problem - General Chief Complaint: Low Back Pain Stated Complaint: BACK PAIN Time Seen by Provider: 10/01/17 15:20 Mode of Arrival: Ambulatory Information source: Patient TRAVEL OUTSIDE OF THE [place] IN LAST 30 DAYS: No - HPI Patient complains to provider of: Pain, Lower back Onset: Other - 1 month Notes: Patient is here with complaints of low back pain. He states the pain is been present for 1 month. No trauma or fall. Patient takes Xarelto for previous blood clots. He denies any bowel or bladder dysfunction. No fever. No abdominal pain. No nausea, vomiting, diarrhea. No numbness, tingling, weakness. Pain is worse with movement of his lower back. He denies any chest pain or shortness of breath. He denies any abdominal pain. He has no other complaints at this time. - Related Data Allergies/Adverse Reactions: heparin Allergy (Severe, Verified 10/01/17 14:27) Past Medical History - Social History Smoking Status: Never Smoker Chew tobacco use (# tins/day): No Frequency of alcohol use: Occasional Family History: Reviewed & Not Pertinent Patient has suicidal ideation: No Patient has homicidal ideation: No - Past Medical History Cardiac Medical History: Reports: Hx Congestive Heart Failure - No evidence of either on 09/15/2014 study at our facility., Hx Hypercholesterolemia, Hx Hypertension, Hx Pulmonary Embolism - 2014 Denies: Hx Heart Attack Pulmonary Medical History: Reports: Hx Intubation, Hx Respiratory Failure, Hx Sleep Apnea Denies: Hx Asthma, Hx COPD Neurological Medical History: Denies: Hx Seizures Endocrine Medical History: Reports: Hx Diabetes Mellitus Type 2. Denies: Hx Hyperthyroidism, Hx Hypothyroidism Renal/ Medical History: Denies: Hx Peritoneal Dialysis GI Medical History: Denies: Hx Cirrhosis, Hx Gastroesophageal Reflux Disease, Hx Hepatitis Musculoskeltal Medical History: Reports Hx Arthritis Psychiatric Medical History: Denies: Hx Depression Infectious Medical History: Denies: Hx Hepatitis Past Surgical History: Reports: Other - Tracheostomy, 2014 - Immunizations Hx Diphtheria, Pertussis, Tetanus Vaccination: Yes Review of Systems - Review of Systems -: Yes All other systems reviewed and negative Physical Exam - Vital signs Vitals: Temp Pulse Resp BP Pulse Ox 98.6 F 73 20 153/83 H 95 10/01/17 14:31 10/01/17 14:31 10/01/17 14:31 10/01/17 14:31 10/01/17 14:31 - Notes Notes: GENERAL: alert, cooperative, nontoxic, no distress. HEAD: normocephalic, atraumatic EYES: conjunctiva pink without discharge, no external redness or swelling. EARS: no external swelling, no external redness NOSE: atraumatic, no external swelling MOUTH/THROAT: mucous membranes moist and pink, posterior pharynx without erythema, swelling, exudate. No trismus or drooling. NECK: soft, supple, full range of motion, no meningismus. CHEST: no distress, lungs clear and equal throughout. No wheezing, rales, rhonchi. CARDIAC: regular rate and rhythm, no murmur, normal capillary refill, normal pulses. No peripheral edema noted. ABDOMEN: soft, nontender, no pusatile mass. BACK: No CVA tenderness. No midline tenderness step-offs or crepitus to palpation of lower back. Slightly decreased range of motion secondary to pain. EXTREMITIES: full range of motion of all extremities. No redness, no swelling. NEURO: alert and oriented A&O x 3, no focal deficits, full range of motion of all extremities. 5 out of 5 flexion and extension of the lower extremities bilaterally. Patellar and Achilles deep tendon reflexes are +2 bilaterally. Normal sensation with no saddle anesthesia. Patient can dorsiflex the great toes bilaterally. PYSCH: appropriate mood, affect. Patient is cooperative. SKIN: pink, warm, dry, no rash. Course - Re-evaluation Re-evalutation: 10/01/17 15:52 Patient is nontoxic appearing with stable vitals. Patient has had low back pain for 1 month. No trauma. No sign of cauda equina, epidural abscess/bleed, discitis, osteomyelitis, AAA. X-ray shows degenerative changes with no acute findings. Patient has a benign exam with no deficits at this time. The patient will be discharged home with a prescription for Ultram. Follow-up with his primary care doctor to next available appointment due to the fact that he has had this pain for a month. Follow-up sooner for worsening pain, fever, numbness, tingling, weakness, difficulty controlling his bowels or bladder, or for any further concerns. The patient is noted to have elevated blood pressure during today's emergency department visit. The patient was informed of this finding. The patient was instructed that this may be related to pre-hypertension and requires further evaluation with a primary care provider. The patient has no hypertensive symptoms at this time. The patient's emergency department workup and current diagnosis were explained to the patient and or family. Follow-up instructions were provided. Medications if prescribed were discussed. Instructions for when to return to the emergency department including specific worrisome symptoms were discussed with the patient and/or family. - Vital Signs Vital signs: Temp Pulse Resp BP Pulse Ox 98.6 F 73 20 153/83 H 95 10/01/17 14:31 10/01/17 14:31 10/01/17 14:31 10/01/17 14:31 10/01/17 14:31 - Diagnostic Test Radiology reviewed: Image reviewed, Reports reviewed - deGenerative changes low back Discharge - Discharge Clinical Impression: Low back pain Qualifiers: Chronicity: acute Back pain laterality: midline Sciatica presence: without sciatica Qualified Code(s): M54.5 - Low back pain Condition: Stable Disposition: HOME, SELF-CARE Instructions: Low Back Pain ([facility]), Oral Narcotic Medication ([facility]) Additional Instructions: Take medications as prescribed. Follow-up with your family doctor at the next available appointment for your chronic low back pain. Follow-up sooner for worsening pain, fever, difficulty controlling her bowels or bladder, weakness, abdominal pain, or for any further concerns. Your blood pressure was elevated during today's visit. Have this rechecked with your doctor. The medication you were prescribed today may cause drowsiness. Do not drive or operate heavy machinery while taking this medication. Prescriptions: Tramadol HCl [Ultram 50 mg Tablet] 50 mg PO Q6HP PRN #10 tablet PRN Reason: Forms: Elevated Blood Pressure Referrals: TRINIDAD RIZVI MD [Primary Care Provider] - Follow up as needed
[2017-10-01 16:06] VITALS: BP 149/82
== END 2017-10-01 16:02 | disposition home or self-care (01) ==
LOC: ER 14:26
DX: M54.5 Low back pain (principal); Z79.01 Long term (current) use of anticoagulants; I10 Essential (primary) hypertension; E11.9 Type 2 diabetes mellitus without complications
CPT/HCPCS: 72110; 99283

== ENCOUNTER 2017-10-16 08:11 | Emergency (ER) | payer MEDICARE ==
[2017-10-16 08:24] VITALS: BP 127/81
--- NOTE | 2017-10-16 08:56 | ER Document Report ---
ED General - General Chief Complaint: Back Pain Stated Complaint: BACK PAIN Time Seen by Provider: 10/16/17 08:55 Mode of Arrival: Medic Information source: Patient TRAVEL OUTSIDE OF THE [place] 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 reports he fell approximately 2 weeks ago while on a swing, as he fell forward, unsure of any back injury. Patient did walk on the treadmill for an hour yesterday. Pain is 7 out of 10, throbbing achy. Has not tried any [id number] pain medication. Worse with movement, better with rest. Has not tried any icing or heat. Last bowel movement was yesterday. denies fevers, chills, chest pain,palpitations, shortness of breath, dyspnea, nausea, vomiting, diarrhea, abdominal pain, hematuria,blurred vision, double vision, loss of vision, speech changes, LH, dizziness, syncope, headaches, wheezing, ST, URI, neck pain, weakness, bowel or bladder dysfunction, saddle anesthesia, numbness or tingling in bilateral upper or lower extremities equally , muscle paralysis, weakness in bilateral upper or lower extremities equally or rash. Denies IV drug use. - Related Data Allergies/Adverse Reactions: heparin Allergy (Severe, Verified 10/01/17 14:27) Past Medical History - General Information source: Patient - Social History Smoking Status: Unknown if Ever Smoked Family History: Reviewed & Not Pertinent Patient has suicidal ideation: No Patient has homicidal ideation: No - Past Medical History Cardiac Medical History: Reports: Hx Congestive Heart Failure - No evidence of either on 09/15/2014 study at our facility., Hx Hypercholesterolemia, Hx Hypertension, Hx Pulmonary Embolism - 2014 Denies: Hx Heart Attack Pulmonary Medical History: Reports: Hx Intubation, Hx Respiratory Failure, Hx Sleep Apnea Denies: Hx Asthma, Hx COPD Neurological Medical History: Denies: Hx Seizures Endocrine Medical History: Reports: Hx Diabetes Mellitus Type 2. Denies: Hx Hyperthyroidism, Hx Hypothyroidism Renal/ Medical History: Denies: Hx Peritoneal Dialysis GI Medical History: Denies: Hx Cirrhosis, Hx Gastroesophageal Reflux Disease, Hx Hepatitis Musculoskeltal Medical History: Reports Hx Arthritis Psychiatric Medical History: Denies: Hx Depression Infectious Medical History: Denies: Hx Hepatitis Past Surgical History: Reports: Other - Tracheostomy, 2015 - Immunizations Hx Diphtheria, Pertussis, Tetanus Vaccination: Yes Review of Systems - Review of Systems Constitutional: No symptoms reported EENT: No symptoms reported Cardiovascular: No symptoms reported Respiratory: No symptoms reported Gastrointestinal: No symptoms reported Genitourinary: No symptoms reported Male Genitourinary: No symptoms reported Musculoskeletal: See HPI Skin: No symptoms reported Hematologic/Lymphatic: No symptoms reported Neurological/Psychological: No symptoms reported Physical Exam - Vital signs Vitals: Temp Pulse Resp BP Pulse Ox 98.6 F 66 20 127/81 H 93 10/16/17 08:21 10/16/17 08:21 10/16/17 08:21 10/16/17 08:21 10/16/17 08:21 - Notes Notes: PHYSICAL EXAMINATION: GENERAL: Well-appearing, well-nourished and in no acute distress. HEAD: Atraumatic, normocephalic. EYES: Pupils equal round and reactive to light, extraocular movements intact, sclera anicteric, conjunctiva are normal. ENT: Nares patent, oropharynx clear without exudates. Moist mucous membranes. NECK: Normal range of motion, supple without lymphadenopathy LUNGS: Breath sounds clear to auscultation bilaterally and equal. No wheezes rales or rhonchi. HEART: Regular rate and rhythm without murmurs ABDOMEN: Soft, nontender, nondistended abdomen. No guarding, no rebound. No masses appreciated. Musculoskeletal: Normal range of motion, no pitting or edema. No cyanosis.Pain with flexion at 45 degrees, no pain with extension. positive straight leg test on left. Normal hip rotation. DTR +2 in BLE equally. Strength 5 out of 5 both distally and proximally to bilateral lower extremities normal motor and sensory function in BLE equally. Distal pulses + 2 BLE equally. Noted paraspinal tenderness near L2 and L3 on left. No spinal tenderness. No CVA tenderness bilaterally. Femoral pulses + 2 bilaterally and equally. No abrasions, scars, lacerations, ecchymosis of any recent trauma. normal gait. NEUROLOGICAL: Cranial nerves grossly intact. Normal speech, normal gait. Normal sensory, motor exams PSYCH: Normal mood, normal affect. SKIN: Warm, Dry, normal turgor, no rashes or lesions noted. Course - Re-evaluation Re-evalutation: 10/16/17 10:01 Presentation of a well appearing patient complaining of acute on chronic back pain. Lumbar x-ray shows spondylosis, no bone lesion or fracture appreciated on x-ray laterally. no rapid progression of symptoms, systemic symptoms including fevers, chills, weight loss, history of recent bacterial infection, bilateral symptoms, numbness, weakness, difficulty walking, urinary retention or bowel incontinence, personal history of cancer, immunosuppression, diabetes, known AAA, or history of IV drug use. Exam is without point tenderness over vertebral bodies, pulsatile abdominal mass, and patient has symmetric and intact lower extremity strength, sensation, and reflexes without clonus. 2+ symmetric medial malleolar and dorsalis pedis pulses Based on history and physical, I have a very low suspicion of a concerning etiology of pain including epidural compression syndrome, spinal infection, transverse myelitis, malignancy, abdominal aortic aneurysm, renal colic, acute lower extremity claudication, neurogenic claudication, ankylosing spondylitis, or other intra-abdominal process. Due to absence of concerning risk factors in history and physical as well as absence of rapidly progressive, severe, or bilateral symptoms, will defer imaging at this point. Plan to manage conservatively with outpatient analgesia, analgesia, and physical therapy. - Acetaminophen 650 q 4 + ibuprofen 600 q 6 - Continue normal daily activities as tolerated by pain - Provide with standard musculoskeletal back pain exercise instructions - Instruct to follow up with primary care provider if symptoms not improving - Provide careful return precautions and concerning symptoms to watch for. I have reevaluated this patient multiple times and no significant life threatening changes, no signs of toxicity, sepsis or peritonitis are noted. The patient and I have discussed the diagnosis and risks, and we agree with discharging home and close follow-up. We also discussed returning to the Emergency Department immediately if new or worsening symptoms occur with the understanding that symptoms and presentations can change. At this time will discharge with return precautions and follow-up recommendations. Verbal discharge instructions given a the bedside and opportunity for questions given. We have discussed the symptoms which are most concerning (e.g., saddle anesthesia, urinary or bowel incontinence or retention, changing or worsening pain) that necessitate immediate return. Medication warnings reviewed. Patient is in agreement with this plan and has verbalized understanding of return precautions and the need for primary care follow-up in the next 24-72 hours. Patient verbalized understanding of plan of care and agree with plan of care. After performing a Medical Screening Examination, I estimate there is LOW risk for EXPANDING OR RUPTURED ABDOMINAL AORTIC ANEURYSM, CAUDA EQUINA SYNDROME, EPIDURAL MASS ABSCESS OR LESION(S), OSTEOMYELITIS,PERSONAL HISTORY OF CANCER, IMMUNOSUPPERSSSION, HISTORY OF IV DRUG USE, FRACTURE, CORD COMPERSSION, CANCER, RETROPERITONEAL BLEED, SPINAL EPIDURAL HEMATOMA, or HERNIATED DISK CAUSING SEVERE SPINAL STENOSIS, thus I consider the discharge disposition reasonable. I have reevaluated this patient multiple times and no significant life threatening changes are noted. The patient and I have discussed the diagnosis and risks, and we agree with discharging home and close follow-up. We also discussed returning to the Emergency Department immediately if new or worsening symptoms occur with the understanding that symptoms and presentations can change. We have discussed the symptoms which are most concerning (e.g., saddle anesthesia, urinary or bowel incontinence or retention, changing or worsening pain) that necessitate immediate return. - Vital Signs Vital signs: Temp Pulse Resp BP Pulse Ox 98.6 F 66 20 127/81 H 93 10/16/17 08:21 10/16/17 08:21 10/16/17 08:21 10/16/17 08:21 10/16/17 08:21 Discharge - Discharge Clinical Impression: Muscle spasm Acute back pain Qualifiers: Back pain location: low back pain Back pain laterality: left Sciatica presence : without sciatica Qualified Code(s): M54.5 - Low back pain Condition: Good Disposition: HOME, SELF-CARE Instructions: Low Back Pain ([facility]), Muscle Strain ([facility]), Warm Packs ([facility]), Ice Packs ([facility]), Muscle Relaxers ([facility]), Myalagia (Muscle Pain) ([facility]) Additional Instructions: LOW BACK PAIN: Three out of every four people will have an episode of disabling back pain during their lifetime. Most commonly the pain is due to straining of the muscles and ligaments in the low back. Usual treatment includes: (1) Rest on a firm surface. Avoid lying on your stomach. (2) Ice pack the painful area. After a few days, gentle heat may be used intermittently to relax the area, or ice packs can be continued. (3) Medication may be needed -- muscle relaxers and antiinflammatory medicines are commonly used. (4) As the back improves, exercises are prescribed to strengthen the back and abdominal muscles. Your doctor will advise you on the proper care for your back at each stage in your recovery. You may be better in a few days -- or healing may take several weeks. If new symptoms of a "herniated disc" (radiation of pain, numbness, or tingling down the back of the leg or weakness in the leg) occur, you should be re-examined. Further testing may be necessary. PAIN MEDICATION INJECTION: You have received an injection of a pain medication. You should experience significant pain relief within 45 minutes. If this injection was a narcotic -- it will impair your judgement, slow your reaction time and make you sleepy (as well as relieve your pain). Narcotics also can cause nausea. You should not drive, work with machinery, or perform any task requiring mental alertness until all effects of the medication are gone -- six to eight hours. Do not take any alcohol, or sedatives, and do not take any other medication without checking with your physician. MUSCLE RELAXERS: Muscle relaxing medications are usually prescribed for acute muscle spasm or injury to the neck and back. They are often combined with antiinflammatory pain medication for increased relief. You may stop the muscle relaxer when the pain and stiffness have improved. Start the medication again if spasms recur. Muscle relaxers may cause drowsiness, especially with the first dose. Do not operate machinery or drive while under the effects of the medication. Most muscle relaxers last up to 24 hours. Do not combine the medication with alcohol. ICE PACKS: Apply ice packs frequently against the painful area. Many different schedules are recommended, such as "20 minutes on, 20 minutes off" or "one hour ice, two hours rest." If you need to work, you may need to go longer between ice treatments. You should plan to have the area ice packed AT LEAST one fourth of the time. The ice should be applied over the wrap, tape, or splint, or over a layer of cloth -- not directly against the skin. Some ice bags have a built-in cloth and can be put directly on the skin. WARM PACKS: After approximately two days, apply gentle heat (such as a heating pad or hot water bottle) for about 20 to 30 minutes about every two hours -- at least four times daily. Warmth and elevation will help you make a more rapid recovery , and will ease the pain considerably. Do not use HOT heat, and never apply heat for longer than 30 minutes. The continuous heat can invisibly damage skin and muscles -- even when no burn is seen on the surface. Damaged muscles can make you MORE sore. FOLLOW-UP CARE: If you have been referred to a physician for follow-up care, call the physician s office for an appointment as you were instructed or within the next two days. If you experience worsening or a significant change in your symptoms, notify the physician immediately or return to the Emergency Department at any time for re-evaluation. You have been seen in the Emergency Department (ED) today for back pain. Your workup and exam have not shown any acute abnormalities and you are likely suffering from muscle strain or possible problems with your discs, but there is no treatment that will fix your symptoms at this time. Please take the naproxen that has been prescribed as directed. You should also purchase a local lidocaine cream such as "aspercreme with lidocaine" and use per bottle instructions to the affected area. Apply heat to the area as often as you are able. Continue to keep active and avoid prolonged periods of bed rest. Please follow up with your doctor as soon as possible regarding today's ED visit and your back pain. Return to the ED for worsening back pain, fever, weakness or numbness of either leg, or if you develop either (1) an inability to urinate or have bowel movements, or (2) loss of your ability to control your bathroom functions (if you start having "accidents"), or if you develop other new symptoms that concern you.concern you. Do not drive, drink alcohol or operate heavy machinery while taking Flexeril as it can cause sedation Return immediately for any new or worsening symptoms. Follow up with primary care provider, call tomorrow to make followup appointment. Prescriptions: Cyclobenzaprine HCl [Flexeril 10 mg Tablet] 10 mg PO TIDP PRN #9 tab PRN Reason: Referrals: TRINIDAD RIZVI MD [Primary Care Provider] - Follow up in 3-5 days JENARO CORONA MD [ACTIVE STAFF] - Follow up in 3-5 days (prn)
[2017-10-16] MEDS ORDERED: DEXAMETHASONE SOD PHOS INJ 10 MG/1 ML VIAL IM ONE (09:02)
--- NOTE | 2017-10-16 10:07 | RADIOLOGY REPORT (SQ) ---
EXAM DESCRIPTION: L SPINE WHOLE COMPLETED DATE/TIME: 10/16/2017 9:47 am REASON FOR STUDY: sudden onset lbp, fell x 2 weeks ago COMPARISON: 10/01/2017 NUMBER OF VIEWS: Five views including obliques. TECHNIQUE: AP, lateral, oblique, and sacral radiographic images acquired of the lumbar spine. LIMITATIONS: None. FINDINGS: MINERALIZATION: Normal. SEGMENTATION: Normal. No transitional anatomy. ALIGNMENT: Stable slight retrolisthesis L3-4. VERTEBRAE: No acute compression fractures. DISCS: Multilevel disc space narrowing with osteophytes. POSTERIOR ELEMENTS: Pedicles and facets are intact. Possible defect pars interarticularis on the lef t L5. No spondylolisthesis. . Facet arthropathy is present. HARDWARE: None in the spine. PARASPINAL SOFT TISSUES: Normal. PELVIS: Intact as visualized. No fractures or worrisome bone lesions. SI joints intact. OTHER: No other significant finding. IMPRESSION: SPONDYLOSIS WITHOUT BONE LESION OR FRACTURE. TECHNICAL DOCUMENTATION: JOB ID: [id number] [employer]- All Rights Reserved Reading location - IP/workstation name: [facility]
== END 2017-10-16 10:30 | disposition home or self-care (01) ==
LOC: ER 08:11
DX: M62.830 Muscle spasm of back (principal); M54.5 Low back pain; M54.9 Dorsalgia, unspecified; G89.29 Other chronic pain; Z86.718 Personal history of other venous thrombosis and embolism; Z79.01 Long term (current) use of anticoagulants; W09.1XXA Fall from playground swing, initial encounter; I10 Essential (primary) hypertension
CPT/HCPCS: 99283; 96372; 72110; J1100